=== PATIENT | female | born 1970 | race Caucasian/White ===

== ENCOUNTER 2017-10-12 12:19 | Emergency (ER) | payer OTHER ==
[~2017-10-12] VITALS: Ht 157.5 cm; Wt 72.7 kg
[~2017-10-12 12:19] MED LIST: ACIPHEX20 MG PO; ADVAIR 250/28 DISKU1 IH; ALBUTEROL0.09 MG/A4 IH; CETIRIZINE PO; FLONASE NASAL S16 GM NS; KETOROLAC10 MG PO; LEXAPRO 10MG10 MG PO; MEDROL 4MG DOSPA4 MG PO; SINGULAIR10 MG PO; VENTOLIN0.09 MG IH; XANAX0.5 MG PO; XOPENEX HF0.045 MG/A IH; XOPENEX1.25 MG/3 IH; ZITHROMAX Z PA250 MG PO; ZYRTEC10 MG PO
[2017-10-12 12:49] LABS: EOS # 0.1 (0.04-0.40); EOS % 1.3 % (1.0-5.0); HEMATOCRIT 39.8 % (37.0-47.0); HEMOGLOBIN 13.3 g/dL (12.5-16.0); LYMPH# 1.7 (1.50-4.00); MEAN CELL VOLUME 90 fl (78-100); MEAN CORPUSCULAR HEMOGLOBIN 30 pg (27-31); MEAN CORPUSCULAR HGB CONC 33 g/dL (33-37); MEAN PLATELET VOLUME 8.7 fl (7.4-10.4); MONO # 0.7 (0.20-0.80); NEU # 5.9 (1.40-6.50); PLATELET COUNT 361 K/mm3 (130-400); RED BLOOD COUNT 4.44 M/mm3 (4.10-5.30); RED CELL DISTRIBUTION WIDTH 13.5 % (11.5-14.5); WHITE BLOOD COUNT 8.5 K/mm3 (4.8-10.8)
[2017-10-12 13:14] LABS: ALBUMIN 4.2 g/dL (3.5-5.0); BUN/CREATININE RATIO 17.4 (6.0-26.0); CALCIUM 9.1 mg/dL (8.4-10.2); POTASSIUM 4.4 mmol/L (3.6-5.0); TOTAL BILIRUBIN 0.9 mg/dL (0.2-1.3); TOTAL PROTEIN 7.4 g/dL (6.3-8.2)
[2017-10-12] MEDS ORDERED: VALIUM 5MG T5 MG/TAB PO (13:51)
[2017-10-12] MEDS ORDERED: ZOFRAN ODT8 M1 PO (13:51)
[2017-10-12 13:57] VITALS: BP 151/85
== END 2017-10-12 13:55 | disposition home or self-care (01) ==
LOC: ED 12:19
PROVIDERS: Physician Assistant
DX: F41.1 Generalized anxiety disorder (principal); R11.0 Nausea; J45.909 Unspecified asthma, uncomplicated; K21.9 Gastro-esophageal reflux disease without esophagitis; Z87.891 Personal history of nicotine dependence

== ENCOUNTER → 2017-12-10 | Outpatient (CLI) | payer OTHER ==
[~2017-12-10] MED LIST changes: +VALIUM 5MG T5 MG/TAB PO; +ZOFRAN ODT8 M1 PO
== END ==
LOC: RAD 17:36
DX: R14.0 Abdominal distension (gaseous) (principal); Z90.49 Acquired absence of other specified parts of digestive tract

== ENCOUNTER 2018-03-18 11:28 | Emergency (ER) | payer OTHER ==
[~2018-03-18] VITALS: Ht 160 cm; Wt 75.0 kg
[2018-03-18] MEDS ORDERED: XANAX0.25 M1 (11:41)
[2018-03-18 12:22] LABS: EOS # 0.2 (0.04-0.40); EOS % 2.7 % (1.0-5.0); HEMATOCRIT 38.1 % (37.0-47.0); HEMOGLOBIN 13.1 g/dL (12.5-16.0); MEAN CELL VOLUME 89 fl (78-100); MEAN CORPUSCULAR HEMOGLOBIN 31 pg (27-31); MEAN CORPUSCULAR HGB CONC 34 g/dL (33-37); MEAN PLATELET VOLUME 8.9 fl (7.4-10.4); MONO # 0.5 (0.20-0.80); PLATELET COUNT 411 K/mm3 (130-400); RED BLOOD COUNT 4.29 M/mm3 (4.10-5.30); RED CELL DISTRIBUTION WIDTH 13.1 % (11.5-14.5); WHITE BLOOD COUNT 6.7 K/mm3 (4.8-10.8)
[2018-03-18 12:35] LABS: ALBUMIN 4.2 g/dL (3.5-5.0); CALCIUM 9.8 mg/dL (8.4-10.2); POTASSIUM 3.7 mmol/L (3.6-5.0); TOTAL BILIRUBIN 0.7 mg/dL (0.2-1.3)
[2018-03-18 14:07] VITALS: BP 136/90
[2018-03-18 23:59] LABS: LUTENIZING HORMONE 5.4 mIU/mL (())
== END 2018-03-18 13:58 | disposition home or self-care (01) ==
LOC: ED 11:28
PROVIDERS: Nurse Practitioner Primary Care
DX: R00.2 Palpitations (principal); F41.9 Anxiety disorder, unspecified; Z87.891 Personal history of nicotine dependence

== ENCOUNTER 2019-01-25 12:23 | Emergency (ER) | payer OTHER ==
[~2019-01-25] VITALS: Ht 160 cm; Wt 72.3 kg
[~2019-01-25 12:23] MED LIST changes: +XANAX0.25 M1
[2019-01-25 13:12] LABS: EOS # 0.2 (0.04-0.40); HEMATOCRIT 40.4 % (37.0-47.0); LYMPH# 1.9 (1.50-4.00); MEAN CELL VOLUME 87 fl (78-100); MEAN CORPUSCULAR HEMOGLOBIN 30 pg (27-31); MEAN CORPUSCULAR HGB CONC 35 g/dL (33-37); MEAN PLATELET VOLUME 8.9 fl (7.4-10.4); MONO # 0.6 (0.20-0.80); NEU # 4.8 (1.40-6.50); PLATELET COUNT 404 K/mm3 (130-400); RED BLOOD COUNT 4.63 M/mm3 (4.10-5.30); WHITE BLOOD COUNT 7.6 K/mm3 (4.8-10.8)
[2019-01-25 13:21] LABS: ALBUMIN 4.1 g/dL (3.5-5.0)
[2019-01-25 13:23] LABS: CALCIUM 9.4 mg/dL (8.3-10.5)
[2019-01-25 13:26] LABS: TOTAL BILIRUBIN 1.1 mg/dL (0.2-1.2)
[2019-01-25 15:17] VITALS: BP 159/90
== END 2019-01-25 14:46 | disposition home or self-care (01) ==
LOC: ED 12:23
PROVIDERS: Family Medicine
DX: K58.9 Irritable bowel syndrome, unspecified (principal); F41.0 Panic disorder [episodic paroxysmal anxiety]; E28.2 Polycystic ovarian syndrome; Z90.49 Acquired absence of other specified parts of digestive tract; Z87.891 Personal history of nicotine dependence

== ENCOUNTER 2019-08-02 16:01 | Emergency (ER) | payer OTHER ==
[~2019-08-02] VITALS: Ht 160 cm; Wt 72.7 kg
[~2019-08-02 16:01] MED LIST changes: -XANAX0.25 M1; +XANAX0.25 M1 PO
[2019-08-02] MEDS ORDERED: PROAIR HFA0.09 MG/AC IH (16:11)
[2019-08-02 17:07] LABS: EOS # 0.1 (0.04-0.40); HEMATOCRIT 40.1 % (37.0-47.0); HEMOGLOBIN 13.6 g/dL (12.5-16.0); LYMPH# 2.3 (1.50-4.00); MEAN CELL VOLUME 89 fl (78-100); MEAN CORPUSCULAR HEMOGLOBIN 30 pg (27-31); MEAN CORPUSCULAR HGB CONC 34 g/dL (33-37); MEAN PLATELET VOLUME 8.4 fl (7.4-10.4); MONO # 0.7 (0.20-0.80); NEU # 3.6 (1.40-6.50); PLATELET COUNT 457 K/mm3 (130-400); RED BLOOD COUNT 4.53 M/mm3 (4.10-5.30); RED CELL DISTRIBUTION WIDTH 12.9 % (11.5-14.5); WHITE BLOOD COUNT 6.7 K/mm3 (4.8-10.8)
[2019-08-02] MEDS ORDERED: PREDNISONE20 M1 PO (17:40)
[2019-08-02 17:54] VITALS: BP 153/96
== END 2019-08-02 17:54 | disposition home or self-care (01) ==
LOC: ED 16:01
PROVIDERS: Family Medicine
DX: J45.909 Unspecified asthma, uncomplicated (principal); F41.9 Anxiety disorder, unspecified; Z87.891 Personal history of nicotine dependence
CPT/HCPCS: J7512

== ENCOUNTER 2019-09-15 03:34 | Emergency (ER) | payer OTHER ==
[~2019-09-15 03:34] MED LIST changes: +PREDNISONE20 M1 PO; +PROAIR HFA0.09 MG/AC IH
[2019-09-15 06:12] VITALS: BP 125/81
== END 2019-09-15 06:14 | disposition home or self-care (01) ==
LOC: ED 03:34
DX: R00.2 Palpitations (principal); F41.9 Anxiety disorder, unspecified; Z90.89 Acquired absence of other organs

== ENCOUNTER → 2019-11-04 | Outpatient (CLI) | payer OTHER ==
[~2019-11-04] VITALS: Ht 160 cm; Wt 72.7 kg
[~2019-11-04] MED LIST changes: +ACTIVATED CHARCOAL; +EPINEPHRIN0.3 MG/0.3 IJ; +FLONASE ALLERG9.9 ML NS
[2019-11-04 08:50] VITALS: BP 129/84
[2019-11-04 09:15] LABS: EOS # 0.1 (0.04-0.40); EOS % 1.2 % (1.0-5.0); HEMATOCRIT 40.2 % (37.0-47.0); HEMOGLOBIN 13.6 g/dL (12.5-16.0); LYMPH# 1.5 (1.50-4.00); MEAN CELL VOLUME 89 fl (78-100); MEAN CORPUSCULAR HEMOGLOBIN 30 pg (27-31); MEAN CORPUSCULAR HGB CONC 34 g/dL (33-37); MONO # 0.7 (0.20-0.80); NEU # 5.2 (1.40-6.50); PLATELET COUNT 467 K/mm3 (130-400); RED BLOOD COUNT 4.52 M/mm3 (4.10-5.30); RED CELL DISTRIBUTION WIDTH 13.2 % (11.5-14.5); WHITE BLOOD COUNT 7.5 K/mm3 (4.8-10.8)
[2019-11-04 09:19] LABS: ALBUMIN 4.4 g/dL (3.5-5.0); POTASSIUM 3.8 mmol/L (3.5-5.1)
[2019-11-04 09:20] LABS: CALCIUM 9.4 mg/dL (8.3-10.5)
[2019-11-04 09:21] LABS: TOTAL PROTEIN 7.1 g/dL (6.4-8.3)
[2019-11-04 09:23] LABS: TOTAL BILIRUBIN 0.7 mg/dL (0.2-1.2)
[2019-11-04 10:00] VITALS: BP 125/74
== END ==
LOC: AMSURD 08:22 → LAB 08:22
PROVIDERS: Nurse Practitioner Family
DX: R42 Dizziness and giddiness (principal); I95.1 Orthostatic hypotension
CPT/HCPCS: J7030

== ENCOUNTER 2019-11-27 08:38 | Emergency (ER) | payer OTHER ==
[~2019-11-27] VITALS: Ht 160 cm; Wt 67.6 kg
[2019-11-27 09:09] LABS: EOS # 0.1 (0.04-0.40); EOS % 1.4 % (1.0-5.0); HEMOGLOBIN 13.5 g/dL (12.5-16.0); LYMPH# 1.3 (1.50-4.00); MEAN CELL VOLUME 90 fl (78-100); MEAN CORPUSCULAR HEMOGLOBIN 30 pg (27-31); MEAN CORPUSCULAR HGB CONC 34 g/dL (33-37); MEAN PLATELET VOLUME 8.4 fl (7.4-10.4); MONO # 0.5 (0.20-0.80); NEU # 5.4 (1.40-6.50); RED BLOOD COUNT 4.45 M/mm3 (4.10-5.30); RED CELL DISTRIBUTION WIDTH 13.2 % (11.5-14.5); WHITE BLOOD COUNT 7.4 K/mm3 (4.8-10.8)
[2019-11-27 09:10] LABS: PLATELET COUNT 503 K/mm3 (130-400)
[2019-11-27 09:19] LABS: ALBUMIN 4.3 g/dL (3.5-5.0)
[2019-11-27 09:20] LABS: POTASSIUM 3.8 mmol/L (3.5-5.1)
[2019-11-27 09:21] LABS: CALCIUM 9.4 mg/dL (8.3-10.5)
[2019-11-27 09:22] LABS: TOTAL PROTEIN 7.3 g/dL (6.4-8.3)
[2019-11-27 09:24] LABS: TOTAL BILIRUBIN 0.8 mg/dL (0.2-1.2)
[2019-11-27 11:50] VITALS: BP 119/82
== END 2019-11-27 11:50 | disposition home or self-care (01) ==
LOC: ED 08:38
PROVIDERS: Nurse Practitioner Primary Care
DX: R51 Headache (principal); G89.29 Other chronic pain; I10 Essential (primary) hypertension; M54.2 Cervicalgia; Z90.49 Acquired absence of other specified parts of digestive tract; Z90.89 Acquired absence of other organs; Z91.010 Allergy to peanuts; Z79.51 Long term (current) use of inhaled steroids
CPT/HCPCS: J1200; J1885

== ENCOUNTER → 2019-11-27 | Outpatient (CLI) | payer OTHER ==
[2019-11-27 10:00] VITALS: BP 128/80
[2019-11-28 04:23] LABS: FOLLICLE STIMULATING HORMONE 5.4 mIU/mL (()); PROGESTERONE 5.6 ng/mL (())
== END ==
LOC: LAB 11:49
PROVIDERS: Nurse Practitioner Primary Care
DX: R51 Headache (principal); R53.1 Weakness

== ENCOUNTER 2020-11-07 17:20 | Emergency (ER) | payer OTHER ==
[2020-11-07] MEDS ORDERED: CHOLESTYRAMINE378 GM PO (19:14)
[2020-11-07] MEDS ORDERED: DESMOPRESS10 MCG/0.1 (19:16)
[2020-11-07 20:22] LABS: BASO # 0.03 (0.02-0.10); EOS # 0.21 (0.04-0.40); EOS % 2.3 % (1.0-5.0); HEMATOCRIT 38.7 % (37.0-47.0); HEMOGLOBIN 13.6 g/dL (12.5-16.0); LYMPH# 1.87 (1.50-4.00); MEAN CELL VOLUME 88 fl (78-100); MEAN CORPUSCULAR HEMOGLOBIN 31 pg (27-31); MEAN CORPUSCULAR HGB CONC 35 g/dL (33-37); MEAN PLATELET VOLUME 9.3 fl (7.4-10.4); MONO # 0.63 (0.20-0.80); NEU # 6.44 (1.40-6.50); PLATELET COUNT 375 K/mm3 (130-400); RED BLOOD COUNT 4.38 M/mm3 (4.10-5.30); RED CELL DISTRIBUTION WIDTH 12.9 % (11.5-14.5); WHITE BLOOD COUNT 9.2 K/mm3 (4.8-10.8)
[2020-11-07 20:25] LABS: ALBUMIN 4.3 g/dL (3.5-5.0); POTASSIUM 3.7 mmol/L (3.5-5.1)
[2020-11-07 20:28] LABS: TOTAL PROTEIN 7.3 g/dL (6.4-8.3)
[2020-11-07 20:54] LABS: URINE APPEARANCE CLEAR; URINE BILIRUBIN NEGATIVE (NEGATIVE); URINE BLOOD NEGATIVE (NEGATIVE); URINE COLOR YELLOW; URINE GLUCOSE NEGATIVE (NEGATIVE); URINE KETONE NEGATIVE (NEGATIVE); URINE LEUKOCYTE ESTERASE NEGATIVE (NEGATIVE); URINE NITRATE NEGATIVE (NEGATIVE); URINE PROTEIN(semi-quant) TRACE mg/dL (NEGATIVE); URINE UROBILINOGEN NORMAL (NORMAL); URINE WBC 0-1 /hpf (0-3)
[2020-11-07 21:14] VITALS: BP 150/91
== END 2020-11-07 21:14 | disposition home or self-care (01) ==
LOC: ED 17:20
PROVIDERS: Family Medicine
DX: E87.1 Hypo-osmolality and hyponatremia (principal); T46.6X5A Adverse effect of antihyperlipidemic and antiarteriosclerotic drugs, initial encounter